=== PATIENT | female | born 1995 | race Caucasian/White ===

== ENCOUNTER 2021-03-12 13:17 | Emergency (ER) | payer OTHER ==
[2021-03-12 13:35] VITALS: TEMP 98; BMI 26.2
[2021-03-12] MEDS ORDERED: ACETAMINOPHEN 500 MG TABLET (FP) PO ONE (15:42)
[2021-03-12] MEDS ORDERED: ACETAMINOPHEN 325 MG TABLET (FP) ONE ×2 (16:03→16:54)
[2021-03-12 18:56] VITALS: BP 120/82; PULSE 80
== END 2021-03-12 18:50 | disposition home or self-care (01) ==
LOC: JER 13:17
DX: M54.2 Cervicalgia (principal); R51.9 Headache, unspecified; M25.511 Pain in right shoulder; R07.89 Other chest pain; R10.31 Right lower quadrant pain; V89.9XXA Person injured in unspecified vehicle accident, initial encounter; Y92.9 Unspecified place or not applicable
CPT/HCPCS: 70450-TC; 71046-TC-FY; 72125-TC; 84703; 93005; 93010; 99284-25